=== PATIENT | female | born 1950 | race Caucasian/White ===

== ENCOUNTER → 2017-07-24 | Outpatient (CLI) | payer OTHER, MEDICARE ==
[2017-07-24 09:59] LABS: BASOPHILS # (AUTO) 0.1 10^3/uL (0.0-0.1); BASOPHILS % (AUTO) 1 % (0-10); EOSINOPHILS # (AUTO) 0.5 10^3/uL (0.0-0.3); EOSINOPHILS % (AUTO) 7 % (0-10); LYMPHOCYTES # (AUTO) 2.1 X 10^3 (1.0-4.0); LYMPHOCYTES % (AUTO) 29 % (12-44); MEAN CORPUSCULAR HEMOGLOBIN 32 PG (25-34); MEAN CORPUSCULAR HGB CONC 33 G/DL (32-36); MEAN CORPUSCULAR VOLUME 96 FL (80-99); MEAN PLATELET VOLUME 9.6 FL (7.4-10.4); MONOCYTES # (AUTO) 0.5 X 10^3 (0.0-1.0); MONOCYTES % (AUTO) 7 % (0-12); NEUTROPHILS % (AUTO) 56 % (42-75); PLATELET COUNT 263 10^3/uL (130-400); RED BLOOD COUNT 4.55 10^6/uL (4.35-5.85); RED CELL DISTRIBUTION WIDTH 14.7 % (10.0-14.5); WHITE BLOOD COUNT 7.2 10^3/uL (4.3-11.0)
--- NOTE | 2017-07-24 10:00 | Diagnostic Imaging Report ---
INDICATION: Cough, congestion and fever PA and lateral chest obtained at 1005 hrs am. There is no prior study for comparison. Heart and mediastinal silhouette are normal in appearance. The lungs are clear. There is no pneumothorax or pleural fluid. IMPRESSION: Negative chest. Report was called to Giselle/RN Dr. Cunha by sandra at 10:02 am. Dictated by: Dictated on workstation # [id number]
[2017-07-24 10:19] LABS: ALANINE AMINOTRANSFERASE 26 U/L (0-55); ALBUMIN 4.4 GM/DL (3.2-4.5); ANION GAP 8 MMOL/L (5-14); ASPARTATE AMINO TRANSFERASE 35 U/L (5-34); BILIRUBIN,TOTAL 0.5 MG/DL (0.1-1.0); BLOOD UREA NITROGEN 12 MG/DL (7-18); BUN/CREATININE RATIO 15; CALCIUM 8.8 MG/DL (8.5-10.1); CARBON DIOXIDE 26 MMOL/L (21-32); CHLORIDE 107 MMOL/L (98-107); CREATININE SERUM 0.82 MG/DL (0.60-1.30); GFR ESTIMATED > 60; GLUCOSE 106 MG/DL (70-105); SODIUM 141 MMOL/L (135-145); TOTAL PROTEIN 7.4 GM/DL (6.4-8.2); hs C REACTIVE PROTEIN 0.83 MG/DL (0.00-0.50)
== END ==
LOC: LAB 09:27
PROVIDERS: ATTEND Internal Medicine
DX: J40 Bronchitis, not specified as acute or chronic (principal); R05 Cough
CPT/HCPCS: 36415; 71020; 80053; 85025; 86141

== ENCOUNTER → 2018-11-03 | Outpatient (CLI) | payer MEDICARE ==
--- NOTE | 2018-11-03 16:30 | Diagnostic Imaging Report ---
INDICATION: Fall. Bilateral knee pain. COMPARISON: None. FINDINGS: Multiple radiographic views of bilateral knees were obtained. There are nquk-[id number]-sosbipfk degenerative changes consisting of joint space narrowing with osteophyte formation, primarily involving the tibiofemoral compartments, greatest medially on the right. Osseous structures otherwise intact. There is no evidence of acute fracture or dislocation. There is no large joint effusion. No unexpected radiopaque foreign bodies are seen. IMPRESSION: 1. No acute fracture or dislocation of the bilateral knees. 2. Moderate degenerative changes. Dictated by: Dictated on workstation # [id number]
== END ==
LOC: RAD FS 15:59
PROVIDERS: ATTEND Nurse Practitioner
DX: S80.02XA Contusion of left knee, initial encounter (principal); S80.01XA Contusion of right knee, initial encounter; M17.0 Bilateral primary osteoarthritis of knee

== ENCOUNTER → 2019-03-30 | Outpatient (CLI) | payer MEDICARE ==
--- NOTE | 2019-03-30 16:29 | Diagnostic Imaging Report ---
CLINICAL INDICATION: Patient fell few weeks ago. Patient still has headaches and right-sided neck pain. EXAM: Head CT without IV contrast. Axial CT scan of the cervical spine with sagittal and coronal reformations. Auto Exposure Controls were utilized during the CT exam to meet ALARA standards for radiation dose reduction. COMPARISON: None. FINDINGS: Head CT: There is no evidence of acute cerebral infarct, intracranial hemorrhage, or gross mass effect. The brain parenchymal volume appears appropriate for patient's age. Likely prominent perivascular space in the left sub-putamen region. There is normal barlow-white matter distinction. There is no significant midline shift or herniation. There is no evidence of hydrocephalus. The basal cisterns are unremarkable. The skull, extracranial soft tissue, and orbits are unremarkable. The paranasal sinuses are unremarkable. Temporal bones show no significant abnormality. Cervical spine: There is no acute cervical spine fracture or dislocation. There is straightening of the cervical spine posture. There are multilevel cervical spine vertebral body spurs and facet arthropathy. There is at least hdylhmet-ej-lckxdv bilateral, C5-C6 neural foramen narrowing and moderate C4-C5 bilateral neural foramen narrowing due to uncinate spurs. There is severe left C3-C4 neural foramen narrowing due to facet arthropathy and uncinate spurs. There is etfxzbrd-ji-nrafkm loss of intervertebral disc height at C5-C6 level. There is at least mild central canal narrowing at the C5-C6 level. Neck soft tissue structures show no significant abnormality. The right thyroid gland is absent which may be from postop changes. Limited visualization of the upper lung field shows no significant abnormality. IMPRESSION: 1: Unremarkable CT scan of the brain for age with no acute intracranial process. 2: Cervical spine degenerative disease with no acute fracture or dislocation. Dictated by: Dictated on workstation # [id number]
== END ==
LOC: RAD 15:11
PROVIDERS: ATTEND Internal Medicine
DX: S06.0X9A Concussion with loss of consciousness of unspecified duration, initial encounter (principal); M47.812 Spondylosis without myelopathy or radiculopathy, cervical region; Z98.890 Other specified postprocedural states
CPT/HCPCS: 70450; 72125

== ENCOUNTER → 2019-09-09 | Outpatient (CLI) | payer MEDICARE ==
--- NOTE | 2019-09-09 13:12 | Diagnostic Imaging Report ---
EXAMINATION: Cervical spine at 12:07 p.m. INDICATION: Neck pain. TECHNIQUE: AP, lateral, odontoid, and both oblique views were obtained. FINDINGS: The previous CT cervical spine exam of 03/30/2019 noted degenerative disc and bony disease at C5-C6 and C6-C7 but failed to show any sign of an acute abnormality. On the lateral view of this exam, there is again narrowing of the disc space and sclerosis of the opposing endplates at C5-C6. The oblique views also show bony foraminal encroachment bilaterally at this level. There is mild narrowing of the disc space at C6-C7 and there may be slight bony foraminal encroachment bilaterally at this level as well. The other intervertebral disc spaces are well maintained. There is no fracture or acute bony abnormality appreciated. There is no sign of retropharyngeal edema. The lung apices are clear. IMPRESSION: 1. There is no evidence for an acute bony abnormality. 2. There is degenerative disc and bony disease at C5-C6 and to a lesser degree at C6-C7. If there is clinical concern regarding spinal stenosis or nerve root encroachment, then MRI would be recommended for further evaluation. Dictated by: Dictated on workstation # [id number]
== END ==
LOC: RAD 11:34
PROVIDERS: ATTEND Internal Medicine
DX: M50.322 Other cervical disc degeneration at C5-C6 level (principal)
CPT/HCPCS: 72050